=== PATIENT | male | born 2005 | race Caucasian/White ===

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

== ENCOUNTER 2024-12-31 22:22 | Emergency (ER) | payer MEDICAID, SELFPAY ==
[2024-12-31 22:33] VITALS: BP 106/65; PULSE 72; RESP 14; TEMP 36.6; O2SAT 100; BMI 20.3
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
[2024-12-31] MEDS: iohexol 350 mg/mL 500 mL Btl (per mL) IV (23:29)
[2024-12-31 23:53] VITALS: PULSE 72; O2SAT 95
[2024-12-31 23:55] LABS: Hematocrit 42.2 % (37-53); Hemoglobin 14.70 g/dL (13.2-15.6); Mean Corpuscular HGB Conc 34.8 g/dL (30-55); Mean Corpuscular Hemoglobin 31.0 pg (27-33); Mean Corpuscular Volume 89.0 fl (82-101); Nucleated Red Blood Cells % 0 %; Platelet Count 159 10^3/cmm (157-399); Red Blood Count 4.74 10^6/uL (3.85-5.65); White Blood Count 4.32 10^3/uL (4.5-13.0)
[2025-01-01] MEDS: tetanus-diphtheria tox (adult) 0.5 mL SDV IM (00:02)
[2025-01-01 00:13] LABS: Anion Gap 16.8 (5-19); Blood Urea Nitrogen 8 mg/dL (6-20); Calcium 9.0 mg/dL (8.5-10.5); Carbon Dioxide 23 mmol/L (22-29); Chloride 104 mmol/L (98-107); Creatinine Clr Calc Pharmacy 175.6562; Glucose 78 mg/dL (65-115); Osmolality Calculated 287 mOsm/kg (285-295); Potassium 3.8 mmol/L (3.5-5.1); Sodium 140 mmol/L (136-145)
== END 2025-01-01 00:44 | disposition home or self-care (01) ==
PROVIDERS: Emergency Provider Emergency Medicine; PCP Pediatrics Adolescent Medicine
DX: S50.311A Abrasion of right elbow, initial encounter (principal); S70.211A Abrasion, right hip, initial encounter; S00.83XA Contusion of other part of head, initial encounter; V86.59XA Driver of other special all-terrain or other off-road motor vehicle injured in nontraffic accident, initial encounter; S06.0X1A Concussion with loss of consciousness of 30 minutes or less, initial encounter
CPT/HCPCS: 36415; 70450; 71260; 73080; 73110; 74177; 80048; 85025; 90471; 90714; 99285; J7040

== ENCOUNTER 2025-05-22 23:16 | Emergency (ER) | payer MEDICAID, SELFPAY ==
--- OUTSIDE RECORDS SUMMARY | 2025-05-22 23:23 | XMS_ITS | Data Portability ---
Author Organization [facility] Bernard, [facility] Address [address] [place] [address] Assessment No assessment recorded. Plan of Treatment Reminders Order Date Submit Date Provider Last Modified By Organization Details Last Modified Time Details Appointments None recorded. Lab SARS CoV 2 RNA, QL, nasopharynx 2022 023 LES [facility] ([facility]), [address] [place], [address], 3 13:44:03 Referral None recorded. Procedures None recorded. Surgeries None recorded. Imaging None recorded. Medication Orders None recorded. Patient TargetsNo targets recorded. Patient InstructionsNo instructions recorded. Reason for Referral None Reported. Results Created Date Observation Date Name Description Value Unit Range Abnormal Flag Note LastModifiedBy Organization Detail LastModifiedTime 02/12/2002/11/2023 SARS CoV 2 RNA, QL, nasop haryn x COVID negati ve Not Available [facility] ([facility]) [address] [place], [address], 02/11/2023 12:55:20 Result Notes None recorded. Medical Equipment None Reported. Vitals Date Recorded Body height Body mass index (BMI) [Percentile] Per age and sex Body mass index (BMI) Body weight Oxygen saturation Heart rate Body temperature Provider Name and Address Organization Details Last Updated DateTime 3 182.88 cm 16 % 20 kg/m2 37428.1 8 g 94 % 58 /min 97.3 [degF] [facility] Social History None recorded. Functional Status None recorded. Mental Status None recorded. Family History Nothing Reported. Medical History No medical history recorded. Past Encounters Encounter ID Performer Location Encounter Start Date Encounter Closed Date Diagnosis/Indication Diagnosis SNOMED-CT Code Diagnosis ICD10 Code Diagnosis IMO Codes Diagnosis Note [id number] DOMITILA BROWN PA-C [facility] ([facility]) [address] [place] [address] 02/11/2023 12:17:38 02/11/2023 13:28:05 Headache 67236828 R51.9 Viral uppe r respiratory tract infection 169444131 J06.9 negative covid. note for school excuse today and yesterday Health Concerns Section Related Observation LastModified by Organization Detai ls LastModified Time None Recorded Concern Status LastModified by Organization Details LastModified Time None Recorded Advance Directives Directive None Recorded Payers Insurance Date Sequence Insurance Name Policy Number Policy Cerda Covered Member ID Cerda Member ID Guarantor Name 02/11/2023 1 *SELF PAY* Dione Aj 02/19/2023 1 [facility] (MEDICAID REPLACEMENT - HMO) VINCENZO Aj [id number] Ricky Aj Notes Date Note Type Note Provider Name and Address Organization Details Recorded Time 02/11/2023 text/html COVID-19 Symptom s September 2019Reported by PatientUpper Respiratory SymptomsFor covid-19 signs and symptoms, patient reportsfever improving,headache same,fatigue same, andcongestion same(lightheaded). For duration, patient reportssymptoms lasting 3 days. For associated symptoms, patient reportsno sputum production,no wheezing, andno body aches.ROS as noted in the HPI DOMITILA BROWN PA-C [address] [place], [address], [facility] [place] [facility] 02/11/2023 13:27:14
[2025-05-22 23:27] VITALS: BP 117/74; PULSE 117; RESP 18; TEMP 36.7; O2SAT 96; BMI 20.3
--- NOTE | 2025-05-22 23:44 | W.ED.WOUNDLC ---
HPI - Wound/Laceration General: Chief Complaint: Wound/Laceration Stated Complaint: Lt middle/ring finger Laceration Time Seen by Provider: 05/22/25 23:35 History of Present Illness: Patient is a 20-year-old male that was working on his car, and a bolt split his 3rd and 4th distal finger of his left hand. He has full function. This occurred just prior to arrival. Bleeding is now controlled. His tetanus was not up-to-date. No sensation changes. Associated symptoms: Denies chills, fever(s), nausea or vomiting Related Data Previous Rx's ?Medication ?Instructions ?Recorded metoclopramide HCl 10 mg tablet 10 mg PO Q6H PRN headache #20 tabs 01/06/23 (Reglan) fluticasone propionate 50 1 spray intranasal BID #15.8 mL 04/05/23 mcg/actuation nasal spray,suspension amoxicillin 500 mg capsule 500 mg PO Q8H #30 caps 11/11/23 dexamethasone 4 mg tablet 4 mg PO DAILY #5 tabs 11/14/23 lidocaine HCl 2 % mucosal solution 15 ml mucous membrane QID #100 mL 11/14/23 (Lidocaine Viscous) cephalexin 500 mg capsule 500 mg PO TID 10 days #30 caps 05/23/25 Allergies Allergy/AdvReac Type Severity Reaction Status Date / Time No Known Allergies Allergy Verified 05/22/25 23:31 Review of Systems Const: Denies: fever(s), chills, body aches, fatigue or malaise ENMT: Denies: throat pain, odynophagia, nasal discharge, nasal congestion or sinus pain Card: Denies: chest pain Resp: Denies: dyspnea, productive cough, non-productive cough, wheezing, pain on inspiration, hemoptysis or chest congestion GI: Denies: abdominal pain, nausea or vomiting Musc: Reports: extremity pain; Denies: neck pain, back pain, extremity swelling, joint pain, joint warmth, limited range of motion or muscle weakness Skin/Breast: Denies: rash Neuro: Denies: headache(s), numbness in extremities, weakness in extremities, sensory changes or dizziness [facility] ED PFSH: Medical History (Updated 05/23/25 @ 01:41 by Shukri Rodriguez DO) No significant past medical history Surgical History No significant past surgical history Social History Smoking and tobacco/nicotine status: never used tobacco/nicotine Second hand smoke exposure: No Alcohol intake: never Substance/Drug Use: never Physical Exam Const: COMMON NORMALS: no acute distress, average body habitus and patient oriented x3 HENMT: COMMON NORMALS: normocephalic and atraumatic HEAD & SCALP: normocephalic and atraumatic Neck/C-Spine: COMMON NORMALS: full ROM and no lymphadenopathy Lymph: LYMPHATIC: no lymphadenopathy noted Resp: COMMON NORMALS: normal respiratory effort, No retractions and No use of accessory muscles Cardio: COMMON NORMALS: regular rate and regular rhythm RATE: regular rate RHYTHM: regular rhythm GI: COMMON NORMALS: Normal to inspection, nondistended, normoactive bowel sounds present, Soft to palpation, non-tender and No hepatosplenomegaly present PALPATION: Yes Soft to palpation and Yes No hepatosplenomegaly present Extremity: NARRATIVE EXTREMITY EXAM: Laceration proximal to nailbed on 3rd and 4th finger, superficial Neuro: COMMON NORMALS: patient oriented x3 Psych: COMMON NORMALS: mental status grossly normal, Normal thought process present and cooperative THOUGHT PROCESS: Normal thought process present Skin: COMMON NORMALS: no rashes or lesions noted, no wounds and turgor normal GENERAL SKIN EXAM: no rashes or lesions noted and turgor normal Course Vital Signs: Vital signs: Vital Signs Temperature 98.1 F 05/22/25 23:27 Pulse Rate 67 05/23/25 03:26 Respiratory Rate 18 05/23/25 03:26 Blood Pressure 134/77 05/23/25 03:26 Pulse Oximetry 98 05/23/25 03:26 Oxygen Delivery Me thod Room Air 05/23/25 00:08 MDM - Wound/Laceration Medical Decision Making Patient is a pleasant 20-year-old male presents to the ED after an injury while fixing his car, where a bolt sliced his 3rd and 4th distal finger on the dorsum. No fracture is noted on my view. There is superficial laceration. Will place Steri-Strips, and wound care Medical Records I reviewed the patient's medical records. Lab Data Radiology Impressions Hand X-Ray 05/23/25 00:33 IMPRESSION: 1. 3 mm linear radiopaque foreign body within the soft tissues adjacent to the 2nd metacarpal phalangeal joint on the radial side. 2. Tiny ossific density adjacent to the distal interphalangeal joint of the 3rd digit, acuity uncertain. Acute fracture fragment can not be excluded in the appropriate clinical presentation. All radiology interpretation(s) finalized by discharge Discharge Plan Discharge Patient Disposition: Home Clinical Impression: Avulsion of skin, Fracture of distal phalanx of finger Condition: Stable Prescriptions: New cephalexin 500 mg capsule 500 mg PO TID 10 Days Qty: 30 0RF No Action fluticasone propionate 50 mcg/actuation spray,suspension 1 spray intranasal BID Qty: 15.8 0RF Rx Instructions: administer 1 spray into each nostril twice daily; use sterile nasal saline first Reglan 10 mg tablet 10 mg PO Q6H PRN (Reason: headache) Qty: 20 0RF dexamethasone 4 mg tablet 4 mg PO DAILY Qty: 5 0RF Lidocaine Viscous 2 % solution 15 ml MUCOUS MEM QID Qty: 100 0RF Rx Instructions: Mix with water and gargle for 60 seconds, then spit amoxicillin 500 mg capsule 500 mg PO Q8H Qty: 30 0RF Discharge Orders: Discharge ED (Routine); Ordered 05/23/25 Ordered By: Shukri Rodriguez Referrals: Fernando Luz DO [Physician, Orthopedics] - 4-7 days January Vazquez MD [Primary Care Provider, Pediatrics] Discharge Diet: Usual diet Discharge Activity: Limit activity as instructed Patient Instructions: Finger Laceration (ED), Patient Portal & [place] Instructions Activity Restrictions/Additional Instructions: - Laceration care: Xeroform, or Vaseline gauze, around the end of fingers #3 and 4 of your left hand. Please Kerlix, then cover with Coban. - Remove the above wound care daily, and wash with antibacterial soap. Rewrap -Follow-up with your doctor next week. -At the pharmacy: Cephalexin Call the orthopedic clinic at the number above tomorrow for an appointment next week. Stay in your splint until seen by them. thank you for choosing [facility] for your healthcare needs today. You have been screened and evaluated and felt safe for discharge. Health conditions do change or evolve sometimes and as such it is important that you follow up with your Primary Doctor to be re checked, 3-5 days is a general good time frame for follow up. You are always welcome to return to the ED for re assessment if your symptoms are worsening or you have new concerns - Return to ED with increasing redness, fever greater than 100.4 ?F Print Language: Argentine Coding Level of Care Code ED Hydro Technician for Maryam Mckeon
[2025-05-23] MEDS: tetanus-dipt-pertussis 0.5 mL SDV IM (00:01)
[2025-05-23 00:08] VITALS: BP 110/64; PULSE 76; O2SAT 97
--- NOTE | 2025-05-23 00:33 | XRR_ITS ---
PROCEDURE INFORMATION: Exam: XR Left Hand Exam date and time: 05/23/2025 12:35 AM Age: 20 years old Clinical indication: Pain; Hand; Left; Additional info: Laceration 3rd, 4th dorsum TECHNIQUE: Imaging protocol: Radiologic exam of the left hand. Views: 3 or more views. COMPARISON: No relevant prior studies available. FINDINGS: Bones/joints: No acute fracture or dislocation. Joint spaces are maintained. Tiny ossific density adjacent to the distal interphalangeal joint of the 3rd digit, acuity uncertain. Soft tissues: 3 mm linear radiopaque foreign body within the soft tissues adjacent to the 2nd metacarpal phalangeal joint on the radial side. XR/XR hand LT min 3V* [id number] IMPRESSION: 1. 3 mm linear radiopaque foreign body within the soft tissues adjacent to the 2nd metacarpal phalangeal joint on the radial side. 2. Tiny ossific density adjacent to the distal interphalangeal joint of the 3rd digit, acuity uncertain. Acute fracture fragment can not be excluded in the appropriate clinical presentation.
[2025-05-23 01:16] VITALS: BP 135/66; PULSE 72; O2SAT 96
[2025-05-23 02:19] VITALS: RESP 16
[2025-05-23] MEDS: oxyCODONE-APAP 5-325 mg Tablet 1 TAB PO (02:19)
--- NOTE | 2025-05-23 02:34 | PC.NURSE ---
3rd digit left hand wound cleansed with saline and hydrogen peroxide dressed with steri strips, xeroform, kerlix and coban placed frog splint 4th digit left hand cleansed with saline and hydrogen peroxide dressed with steri strips, xeroform, kerlix and coban
[2025-05-23 03:26] VITALS: BP 134/77; PULSE 67; RESP 18; O2SAT 98
== END 2025-05-23 01:30 | disposition home or self-care (01) ==
PROVIDERS: Emergency Provider Physician Assistant; PCP Pediatrics Adolescent Medicine
DX: S62.639A Displaced fracture of distal phalanx of unspecified finger, initial encounter for closed fracture (principal); S61.213A Laceration without foreign body of left middle finger without damage to nail, initial encounter; S61.215A Laceration without foreign body of left ring finger without damage to nail, initial encounter; X58.XXXA Exposure to other specified factors, initial encounter
CPT/HCPCS: 29130; 73130; 90471; 90715; 99283; J9999